=== PATIENT | female | born 1960 | race Caucasian/White ===

== ENCOUNTER 2017-03-31 06:40 | Emergency (ER) | payer BC ==
[~2017-03-31] VITALS: Ht 160 cm; Wt 65.8 kg
[~2017-03-31 06:40] MED LIST: MULT-1335 PO; OMEG500C7 PO
[2017-03-31] MEDS ORDERED: OMEP-125 PO (06:49)
[2017-03-31] MEDS ORDERED: AMOX-559 PO (06:49)
--- NOTE | 2017-03-31 07:00 | ER Report ---
History and Physical Time Seen By MD: 06:59 Hx. of Stated Complaint: PT HAS HAD ONSET OF DYSPNEA SINCE THE WEEKEND, NON PROD COUGH, NO RESP HX. PAIN IN "BRONCHIAL TUBES " WITH COUGH HPI/ROS CHIEF COMPLAINT: short of breath, hypoxia HISTORY OF PRESENT ILLNESS: This is a 56 year old female. She has been having symptoms of shortness of breath for several days. Very fatigued as well. Has been using her sister's oxygen with her CPAP at night. When she takes of the CPAP, she feels worse, but while on the CPAP has felt better. Short of breath, especially with exertion. Has non-productive cough. Has pain in the upper chest , what she describes as from her bronchial tubes. Worsens with cough. Subjective fevers. Mild sore throat and congestions and drainage. No other chest pain. No nausea or vomiting. No problems with bowel or bladder. Has some muscle aches. No rashes. No swelling in extremities at this time. Has had prior symptoms like this in the past requiring oxygen use, but workup was negative including stress tests, cardiac ultrasound. She has been seeing a impress associate since then. REVIEW OF SYSTEMS: As above. Allergies: Coded Allergies: Sulfa (Sulfonamide Antibiotics) (Verified Adverse Reaction, Unknown, ITCHING, 03/31/17) Home Meds Active Scripts Azithromycin (ZITHROMAX) 250 Mg Tablet, 2 TAB PO DIRECTED for 5 Days, #6 TAB 0 Refills Take 2 tablets today and then one daily for 4 more days. Prov:JAMSHID MCCORMACK MD 03/31/17 Reported Medications Amoxicillin/Pot Clav 875-125 Mg Tab (AUGMENTIN 875-125 TABLET) 1 Each Tablet, 1 TAB PO Q12H, TAB 03/31/17 Omeprazole (OMEPRAZOLE) 20 Mg Capsule.dr, 1 CAP PO QDAY, CAP 03/31/17 [place]-3 Fatty Acids (FISH OIL) 500 Mg Capsule, 500 MG PO QDAY 11/25/12 Multivitamin With Minerals (MULTIPLE VITAMIN) 1 Each Tablet, 1 EACH PO QDAY 11/25/12 Past Medical/Surgical History Obstructive sleep apnea, pulmonary history as noted above. Postmenopausal, orthopedic surgery on left great toe for bone spurs Reviewed Nurses Notes: Yes Hx Substance Use Disorder: No Hx Alcohol Use: Yes (10 WEEKLY) Constitutional Vital Sign - Last 24 Hours 1/9/18 03/31/17 03/31/17 03/31/17 06:43 06:43 06:45 07:00 Temp 97.5 Pulse 115 Resp 22 B/P (MAP) 134/89 134/89 (104) 114/69 (84) Pulse Ox 80 O2 Delivery Room Air O2 Flow Rate 2.0 03/31/17 03/31/17 03/31/17 03/31/17 07:10 07:11 07:11 07:16 Pulse 83 85 Resp 22 16 Pulse Ox 95 95 95 O2 Delivery Nasal Cannula Nasal Cannula O2 Flow Rate 4.0 3.0 03/31/17 03/31/17 03/31/17 03/31/17 07:16 07:40 08:45 08:51 Pulse 98 77 Resp 18 25 B/P (MAP) 118/68 (85) Pulse Ox 83 03/31/17 03/31/17 03/31/17 09:15 09:20 10:20 Pulse 74 78 73 Resp 24 20 24 Pulse Ox 92 93 93 Physical Exam General Appearance: The patient is alert. No acute distress. Non-toxic in appearance. Eyes: Pupils are equal, round. No pallor, injection or icterus. ENT: Mucous membranes are moist. Normal oral mucosa. Posterior oropharynx with some posterior drainage and mild erythema, but no exudates or hypertrophy. Normal tympanic membranes and canals. Neck: Supple and non tender. No lymphadenopathy. Respiratory: Lungs have course rhonchi, but no wheezing or rales. There are no retractions or accessory muscle use. hypoxia of 83% on room air, improves into the 90s on 2 liters of oxygen. Cardiovascular: Regular rate and rhythm. No murmurs, gallops or rubs. Normal capillary refill. Gastrointestinal: Abdomen is soft and non tender. No masses or organomegaly. Normal active bowel sounds. No costovertebral angle tenderness with percussion. Neurological: Alert and oriented x3. Skin: Warm and dry. No rashes. Musculoskeletal: Nontender. Full range of motion. DIFFERENTIAL DIAGNOSIS: After history and physical exam, differential diagnosis was considered for shortness of breath including but not limited to pulmonary infectious process, COPD, asthma, pulmonary embolus and congestive heart failure. Medical Decision Making Data Points Result Diagram: 03/31/17 0650 03/31/17 0650 Laboratory Hematology Test 03/31/17 06:50 03/31/17 07:20 03/31/17 07:58 Red Blood Count 4.88 M/uL (4.17-5.56) Mean Corpuscular Volume 88.7 fL (80.0-96.0) Mean Corpuscular Hemoglobin 30.2 pg (26.0-33.0) Mean Corpuscular Hemoglobin Concent 34.0 g/dL (32.0-36.0) Red Cell Distribution Width 13.5 % (11.5-14.5) Mean Platelet Volume 7.3 fL (7.2-11.1) Neutrophils (%) (Auto) 68.2 % (39.4-72.5) Lymphocytes (%) (Auto) 23.2 % (17.6-49.6) Monocytes (%) (Auto) 6.4 % (4.1-12.4) Eosinophils (%) (Auto) 1.2 % (0.4-6.7) Basophils (%) (Auto) 1.0 % (0.3-1.4) Nucleated RBC Relative Count (auto) 0.0 /100WBC Neutrophils # (Auto) 9.6 K/uL (2.0-7.4) Lymphocytes # (Auto) 3.3 K/uL (1.3-3.6) Monocytes # (Auto) 0.9 K/uL (0.3-1.0) Eosinophils # (Auto) 0.2 K/uL (0.0-0.5) Basophils # (Auto) 0.1 K/uL (0.0-0.1) Nucleated RBC Absolute Count (auto) 0.00 K/uL D-Dimer Quantitative (PE/DVT) 5.68 ug/ml (0-0.50) Sodium Level 134 mmol/L (137-145) Potassium Level 3.7 mmol/L (3.5-5.0) Chloride Level 94 mmol/L (98-107) Carbon Dioxide Level 30 mmol/L (22-31) Blood Urea Nitrogen 10 mg/dl (7-18) Creatinine 0.80 mg/dl (0.52-1.04) Glomerular Filtration Rate Calc > 60.0 Random Glucose 109 mg/dl (75-110) Calcium Level 9.9 mg/dl (8.4-10.2) Total Bilirubin 0.7 mg/dl (0.2-1.3) Aspartate Amino Transf (AST/SGOT) 36 U/L (0-35) Alanine Aminotransferase (ALT/SGPT) 34 U/L (0-56) Alkaline Phosphatase 122 U/L (0-126) Troponin I < 0.012 ng/ml B-Type Natriuretic Peptide 35 pg/ml (0-100) Total Protein 8.5 gm/dl (6.3-8.2) Albumin 4.3 g/dl (3.5-5.0) Influenza Type A Antigen Negative (NEGATIVE) Influenza Type B Antigen Negative (NEGATIVE) Urine Color Straw Urine Clarity Clear Urine pH 7.0 pH (4.8-9.5) Urine Specific [place] 1.004 Urine Protein Negative mg/dL (NEGATIVE) Urine Glucose (UA) Negative mg/dL (NEGATIVE) Urine Ketones Negative mg/dL (NEGATIVE) Urine Blood Negative (NEGATIVE) Urine Nitrite Negative (NEGATIVE) Urine Bilirubin Negative (NEGATIVE) Urine Urobilinogen Negative mg/dL (0.2-1.9) Urine Leukocyte Esterase Negative (NEGATIVE) Urine RBC None /HPF (0-2/HPF) Urine WBC None /HPF (0-5/HPF) Urine Squamous Epithelial Cells Moderate /LPF (</=FEW) Urine Bacteria Negative /HPF (NONE-FEW) Urine Mucus None /HPF (NONE-FEW) Chemistry Test 03/31/17 06:50 03/31/17 07:20 03/31/17 07:58 White Blood Count 14.1 k/uL (4.5-11.0) Red Blood Count 4.88 M/uL (4.17-5.56) Hemoglobin 14.7 g/dL (12.0-16.0) Hematocrit 43.2 % (34.0-47.0) Mean Corpuscular Volume 88.7 fL (80.0-96.0) Mean Corpuscular Hemoglobin 30.2 pg (26.0-33.0) Mean Corpuscular Hemoglobin Concent 34.0 g/dL (32.0-36.0) Red Cell Distribution Width 13.5 % (11.5-14.5) Platelet Count 413 K/uL (150-450) Mean Platelet Volume 7.3 fL (7.2-11.1) Neutrophils (%) (Auto) 68.2 % (39.4-72.5) Lymphocytes (%) (Auto) 23.2 % (17.6-49.6) Monocytes (%) (Auto) 6.4 % (4.1-12.4) Eosinophils (%) (Auto) 1.2 % (0.4-6.7) Basophils (%) (Auto) 1.0 % (0.3-1.4) Nucleated RBC Relative Count (auto) 0.0 /100WBC Neutrophils # (Auto) 9.6 K/uL (2.0-7.4) Lymphocytes # (Auto) 3.3 K/uL (1.3-3.6) Monocytes # (Auto) 0.9 K/uL (0.3-1.0) Eosinophils # (Auto) 0.2 K/uL (0.0-0.5) Basophils # (Auto) 0.1 K/uL (0.0-0.1) Nucleated RBC Absolute Count (auto) 0.00 K/uL D-Dimer Quantitative (PE/DVT) 5.68 ug/ml (0-0.50) Glomerular Filtration Rate Calc > 60.0 Calcium Level 9.9 mg/dl (8.4-10.2) Total Bilirubin 0.7 mg/dl (0.2-1.3) Aspartate Amino Transf (AST/SGOT) 36 U/L (0-35) Alanine Aminotransferase (ALT/SGPT) 34 U/L (0-56) Alkaline Phosphatase 122 U/L (0-126) Troponin I < 0.012 ng/ml B-Type Natriuretic Peptide 35 pg/ml (0-100) Total Protein 8.5 gm/dl (6.3-8.2) Albumin 4.3 g/dl (3.5-5.0) Influenza Type A Antigen Negative (NEGATIVE) Influenza Type B Antigen Negative (NEGATIVE) Urine Color Straw Urine Clarity Clear Urine pH 7.0 pH (4.8-9.5) Urine Specific [place] 1.004 Urine Protein Negative mg/dL (NEGATIVE) Urine Glucose (UA) Negative mg/dL (NEGATIVE) Urine Ketones Negative mg/dL (NEGATIVE) Urine Blood Negative (NEGATIVE) Urine Nitrite Negative (NEGATIVE) Urine Bilirubin Negative (NEGATIVE) Urine Urobilinogen Negative mg/dL (0.2-1.9) Urine Leukocyte Esterase Negative (NEGATIVE) Urine RBC None /HPF (0-2/HPF) Urine WBC None /HPF (0-5/HPF) Urine Squamous Epithelial Cells Moderate /LPF (</=FEW) Urine Bacteria Negative /HPF (NONE-FEW) Urine Mucus None /HPF (NONE-FEW) Coagulation Test 03/31/17 06:50 D-Dimer Quantitative (PE/DVT) 5.68 ug/ml Urinalysis Test 03/31/17 07:58 Urine Color Straw Urine Clarity Clear Urine pH 7.0 pH (4.8-9.5) Urine Specific [place] 1.004 Urine Protein Negative mg/dL (NEGATIVE) Urine Glucose (UA) Negative mg/dL (NEGATIVE) Urine Ketones Negative mg/dL (NEGATIVE) Urine Blood Negative (NEGATIVE) Urine Nitrite Negative (NEGATIVE) Urine Bilirubin Negative (NEGATIVE) Urine Urobilinogen Negative mg/dL (0.2-1.9) Urine Leukocyte Esterase Negative (NEGATIVE) Urine RBC None /HPF (0-2/HPF) Urine WBC None /HPF (0-5/HPF) Urine Squamous Epithelial Cells Moderate /LPF (</=FEW) Urine Bacteria Negative /HPF (NONE-FEW) Urine Mucus None /HPF (NONE-FEW) Microbiology Microbiology Date/Time Source Procedure Growth Status 03/31/17 07:37 Blood Blood Culture - Preliminary NO GROWTH SO FAR, SET LATE. REINCUBATED Resulted 03/31/17 07:37 Blood Blood Culture - Preliminary NO GROWTH SO FAR, SET LATE. REINCUBATED Resulted EKG/Imaging EKG Interpretation 12 lead EKG: Rhythm: normal sinus rhythm [place]: normal QRS: normal ST segments: normal Imaging EXAMINATION: PA and Lateral Chest 03/31/2017 7:08 AM HISTORY: RESP DISTRESS. 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 COMPARISON: CT 05/29/2014, chest x-ray 05/23/2014 FINDINGS: Cardiomediastinal contours: Normal Lungs and pleura: Minimal linear subsegmental atelectasis in lateral lower lung field on the left. No significant acute infiltrate. Pleural spaces are clear. Bones/soft tissues: Right hemidiaphragm is not significantly elevated. Scoliotic spinal curvature. Minimal degenerative spurring along the spine. IMPRESSION: No significant acute cardiopulmonary abnormality. Report Dictated By: Garrison Wilhelm MD at 03/31/2017 8:24 AM EXAMINATION: CTA Chest With Contrast 03/31/2017 8:17 AM HISTORY: ELEVATED D-DIMER TECHNIQUE: Pulmonary embolus protocol - Thin-slice axial imaging of the chest was performed during maximal pulmonary arterial opacification with intravenous nonionic iodinated contrast. 3D coronal slab MIPs and 2D reconstructions in the coronal and sagittal planes were performed to aid in pulmonary embolus detection. [place] images have been stored on PACS. Contrast: 75 mL of IV Isovue 370. One of the following dose optimization techniques was utilized in the performance of this exam: Automated exposure control; adjustment of the mA and/ or kV according to the patient's size; or use of an iterative reconstruction technique. Specific details can be referenced in the facility's radiology CT exam operational policy. COMPARISON STUDIES: Chest x-ray today. CT 05/29/2014. FINDINGS: Angiographic Findings: Pulmonary arteries: There are no filling defects in the main, right, left, lobar , segmental or visualized sub-segmental branches of the pulmonary arterial system Other vasculature: negative Additional non-angiographic findings: Lungs / pleura: Subtle diffuse groundglass haziness in the lungs is probably reflective of the stop breathing CTA technique. Dependent lower lobe markings bilaterally are probably simply atelectasis. There are small pleural-based foci of infiltrate or opacity laterally in the right upper lobe (axial images 25 through 28) and some subtle patchy groundglass density laterally in the left upper lobe most notably axial image 37 and 38). Mediastinum / earnest: negative Heart / pericardium: negative Musculoskeletal / Body wall: Old lateral right third rib injury. Mild dextroscoliotic curvature. Lymph node assessment: negative Lower neck: negative Upper abdomen: Incidental small accessory splenules under the lateral left hemidiaphragm. IMPRESSION: 1. Negative CTA evaluation for PE. 2. Small peripheral or pleural-based densities in the lateral upper lobes bilaterally. This may simply be areas of atelectasis although infectious or inflammatory infiltrate would be possible. Dependent bilateral lower lobe markings are more likely simply atelectasis. Report Dictated By: Garrison Wilhelm MD at 03/31/2017 9:06 AM ED Course/Re-evaluation Clinical Indication for ER IV: IV Access ED Course Labs were done and showed a mild increased white count. Imaging with some changes as noted on CT scan, but without PE. Question if this is early bacterial community acquired pneumonia, versus a viral pulmonary process. Unable to determine fully from labs and imaging. She feels much better with the oxygen. Troponin and EKG are normal. Recommended home oxygen. Continue Augmenting that she has been on and has taken 3 doses of now. Add Azithromycin. Recommended follow-up with pulmonology. Decision to Disposition Date: Mar 31, 2017 Decision to Disposition Time: 10:48 Depart Departure Latest Vital Signs Vital Signs Date Time Temp Pulse Resp B/P (MAP) Pulse Ox O2 Delivery O2 Flow Rate FiO2 03/31/17 10:20 73 24 93 03/31/17 08:51 118/68 (85) 03/31/17 07:16 Nasal Cannula 3.0 03/31/17 06:43 97.5 Impression: Primary Impression: Community acquired pneumonia Additional Impression: Hypoxia Condition: Improved Disposition: HOME OR SELF-CARE Referrals: JOSÉ MIGUEL GALLAGHER MD (PCP) New Scripts Azithromycin (ZITHROMAX) 250 Mg Tablet 2 TAB PO DIRECTED for 5 Days, #6 TAB 0 Refills Take 2 tablets today and then one daily for 4 more days. Prov: JAMSHID MCCORMACK MD 03/31/17 Departure Forms: Home Oxygen, Nebulizer RX Durable Medical Equipment- Oxygen: Oxygen Concentrator, Portable Oxygen Gas Reason for Use/Diagnosis: pneumonia, hypoxia Start Date of the Order: Mar 31, 2017 Dosage or Concentration (if applicable) - LPM: 2 Route of Administration (if applicable): Nasal Cannula Frequency of Use: Continuous Duration Home O2 Required: 4 Duration Units: Weeks Room Air Oxygen Saturation: 83 ER Prescribing Physician's Name: Jamshid Mccormack NPI Numbers for Local ER MDs: Ksenia [id number] Patient Instructions: Community Acquired Pneumonia (ED), Hypoxia (ED) Additional Instructions: We were not able to determine the exact cause of your low oxygen and shortness of breath. We feel that this is a pulmonary infectious process, but could be viral or bacterial. We are going to treat based on likely early bacterial pneumonia. Keep taking you Augmenting till completion. Start Azithromycin 250mg tablets. Take 2 tablets today, then one tablet daily for 4 more days. Call to arrange a follow-up visit with your impress associate. Start continuous oxygen until you are better and no longer needed. Problem Qualifiers Primary Impression: Community acquired pneumonia Laterality: unspecified laterality Qualified Codes: J18.9 - Pneumonia, unspecified organism JAMSHID MCCORMACK MD Mar 31, 2017 07:00
[2017-03-31] MEDS ORDERED: ALBUTEROL/IPRATROPIUM 3 ML NEB ONE (07:11)
[2017-03-31 07:27] LABS: PLATELET COUNT, AUTOMATED 413 K/uL (150-450)
[2017-03-31] MEDS ORDERED: NS 0.9% 50 ML VIAL 50 ML ONE ×2 (08:25→08:26)
[2017-03-31] MEDS ORDERED: IOPAMIDOL 76% 75 ML INFUS BTL 75 ML ONE (08:25)
--- NOTE | 2017-03-31 08:32 | RADIOLOGY IMAGING REPORT ---
FACILITY: [facility] [place] PATIENT NAME: Shira Figueroa : 1960 MR: [id number] V: [id number] EXAM DATE: ORDERING PHYSICIAN: WILLIAMS CONRAD TECHNOLOGIST: Location: [facility] Patient: Shira Figueroa : 1960 Visit/Account:[id number] Date of Sevice: 03/31/2017 EXAMINATION: PA and Lateral Chest 03/31/2017 7:08 AM HISTORY: RESP DISTRESS. 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 COMPARISON: CT 05/29/2014, chest x-ray 05/23/2014 FINDINGS: Cardiomediastinal contours: Normal Lungs and pleura: Minimal linear subsegmental atelectasis in lateral lower lung field on the left. N o significant acute infiltrate. Pleural spaces are clear. Bones/soft tissues: Right hemidiaphragm is not significantly elevated. Scoliotic spinal curvature. Minimal degenerative spurring along the spine. IMPRESSION: No significant acute cardiopulmonary abnormality. Report Dictated By: Garrison Wilhlem MD at 03/31/2017 8:24 AM Report E-Signed By: Garrison Wilhelm MD at 03/31/2017 8:27 AM WSN:[id number]
[2017-03-31 08:51] VITALS: BP 118/68
--- NOTE | 2017-03-31 08:58 | EKG ---
FACILITY: [facility] PATIENT NAME: NANCY STACK : [id number] MR: [id number] V: [id number] EXAM DATE: ORDERING PHYSICIAN: WILLIAMS CONRAD TECHNOLOGIST: SCOTT Irizarry Reason : RESPIRATORY Blood Pressure : / mmHG Vent. Rate : 086 BPM Atrial Rate : 086 BPM P-R Int : 142 ms QRS Dur : 084 ms QT Int : 376 ms P-R-T Axes : 055 029 025 degrees QTc Int : 449 ms Normal sinus rhythm Normal ECG No previous ECGs available Confirmed by CEDRIC SEGURA ([id number]) on 04/01/2017 6:28:37 AM Referred By: Confirmed By:CEDRIC SEGURA
--- NOTE | 2017-03-31 09:20 | RADIOLOGY IMAGING REPORT ---
FACILITY: [facility] [place] PATIENT NAME: Shira Figueroa : 1960 MR: [id number] V: [id number] EXAM DATE: ORDERING PHYSICIAN: WILLIAMS CONRAD TECHNOLOGIST: Location: [facility] Patient: Shira Figueroa : 1960 Visit/Account:[id number] Date of Sevice: 03/31/2017 EXAMINATION: CTA Chest With Contrast 03/31/2017 8:17 AM HISTORY: ELEVATED D-DIMER TECHNIQUE: Pulmonary embolus protocol - Thin-slice axial imaging of the chest was performed during maximal pulmonary arterial opacification with intravenous nonionic iodinated contrast. 3D coronal sla b MIPs and 2D reconstructions in the coronal and sagittal planes were performed to aid in pulmonary e mbolus detection. [place] images have been stored on PACS. Contrast: 75 mL of IV Isovue 370. One of the following dose optimization techniques was utilized in the performance of this exam: Autom ated exposure control; adjustment of the mA and/or kV according to the patient's size; or use of an i terative reconstruction technique. Specific details can be referenced in the facility's radiology C T exam operational policy. COMPARISON STUDIES: Chest x-ray today. CT 05/29/2014. FINDINGS: Angiographic Findings: Pulmonary arteries: There are no filling defects in the main, right, left, lobar, segmental or visual ized sub-segmental branches of the pulmonary arterial system Other vasculature: negative Additional non-angiographic findings: Lungs / pleura: Subtle diffuse groundglass haziness in the lungs is probably reflective of the stop b reathing CTA technique. Dependent lower lobe markings bilaterally are probably simply atelectasis. There are small pleural-based foci of infiltrate or opacity laterally in the right upper lobe (axial images 25 through 28) and some subtle patchy groundglass density laterally in the left upper lobe mos t notably axial image 37 and 38). Mediastinum / earnest: negative Heart / pericardium: negative Musculoskeletal / Body wall: Old lateral right third rib injury. Mild dextroscoliotic curvature. Lymph node assessment: negative Lower neck: negative Upper abdomen: Incidental small accessory splenules under the lateral left hemidiaphragm. IMPRESSION: 1. Negative CTA evaluation for PE. 2. Small peripheral or pleural-based densities in the lateral upper lobes bilaterally. This may sim ply be areas of atelectasis although infectious or inflammatory infiltrate would be possible. Depend ent bilateral lower lobe markings are more likely simply atelectasis. Report Dictated By: Garrison Wilhelm MD at 03/31/2017 9:06 AM Report E-Signed By: Garrison Wilhelm MD at 03/31/2017 9:14 AM WSN:[id number]
[2017-03-31] MEDS ORDERED: AZIT-1 PO (10:50)
== END 2017-03-31 11:26 | disposition home or self-care (01) ==
LOC: ER 06:42
DX: J18.9 Pneumonia, unspecified organism (principal); R09.02 Hypoxemia
CPT/HCPCS: 36415; 71046; 71275; 81001; 83880; 84484; 85025; 85379; 87040; 87502; 93005; 94640; 99284; J7050; J7620; Q9967; 82040; 82247; 82310; 82374; 82435; 82565; 82947; 84075; 84132; 84155; 84295; 84450; 84460; 84520

== ENCOUNTER → 2017-04-06 | Outpatient (CLI) | payer BC ==
[~2017-04-06] MED LIST changes: +AMOX-559 PO; +AZIT-1 PO; +OMEP-125 PO
== END ==
LOC: RESP 07:07
PROVIDERS: ATTEND Internal Medicine Pulmonary Disease
DX: J96.01 Acute respiratory failure with hypoxia (principal)
CPT/HCPCS: 94060; 94726; 94729

== ENCOUNTER → 2017-04-16 | Outpatient (CLI) | payer BC ==
[~2017-04-16] MED LIST changes: +BARIUM SULFATE 176 GM BTL PO ONE; +BARIUM SULFATE 340 GM POWD ONE
--- NOTE | 2017-04-16 17:16 | RADIOLOGY IMAGING REPORT ---
FACILITY: [facility] PATIENT NAME: Shira Figueroa : 1960 MR: [id number] V: [id number] EXAM DATE: ORDERING PHYSICIAN: ERYN DIAS TECHNOLOGIST: Location: [facility] Patient: Shira Figueroa : 1960 Visit/Account:[id number] Date of Sevice: 04/16/2017 Exam type: UPPER GI SERIES W/AIR W/KUB History: Heartburn epigastric pain worse while lying down Comparison: None. Findings: Double contrast esophagram was performed with thick and thin barium. A very large amount of gastroes ophageal reflux was observed although there was no evidence of esophageal narrowing or mucosal erosio n. No abnormality of the stomach duodenal bulb or duodenal C-loop was seen. The fluoroscopy dose ar ea product was 303.47 micro-Rosales per meter squared IMPRESSION: 1. Large amount of gastroesophageal reflux although no evidence of esophageal narrowing or mucosal e rosion. Report Dictated By: Kristie Sam MD at 04/16/2017 5:08 PM Report E-Signed By: Kristie Sam MD at 04/16/2017 5:11 PM WSN:[email or web address]
== END ==
LOC: RAD 02:03
PROVIDERS: ATTEND Surgery
DX: K21.9 Gastro-esophageal reflux disease without esophagitis (principal)
CPT/HCPCS: 74247

== ENCOUNTER → 2017-06-05 | Outpatient (REF) | payer BC ==
[~2017-06-05] MED LIST changes: +ACET-1966 PO; -BARIUM SULFATE 176 GM BTL PO ONE; -BARIUM SULFATE 340 GM POWD ONE; +IBUP200C74 PO; +LACT1CAP6 PO; +MAGN100T PO; +MULT-964 PO; +OMEG-11 PO; +PANT40TA65 PO; +RANI-325 PO; +VITA1CAP46 PO
== END ==
LOC: ZZSENDIN 13:58
PROVIDERS: ATTEND Otolaryngology
DX: K21.9 Gastro-esophageal reflux disease without esophagitis (principal)
CPT/HCPCS: 87338